=== PATIENT | male | born 1955 | race Caucasian/White ===

== ENCOUNTER → 2016-08-24 | Outpatient (CLI) | payer OTHER | LOC: FIMAGING 15:15 | PROVIDERS: ATTEND Internal Medicine | DX: J98.4 Other disorders of lung (principal) ==

== ENCOUNTER 2017-09-08 17:11 | Emergency (ER) | payer OTHER ==
[2017-09-08] MEDS ORDERED: NS 1,000 ML IV ONE (17:27)
[2017-09-08] MEDS ORDERED: ONDANSETRON 4 MG/2 ML VIAL IVP ONE (17:27)
--- NOTE | 2017-09-08 17:27 | EDPHY ---
General - History Smoking Status: Never smoked Time Seen by Provider: 09/08/17 17:19 Narrative: CHIEF COMPLAINT: Abdominal pain HISTORY OF PRESENT ILLNESS: Patient complains of pain in the left lower quadrant. This started last night after washing his vehicle. It is located only in the left lower quadrant. It has been constant duration. Rated as severe, 10/10 while moving. He says that he can"feel it when I step."Minimal improvement rest. Does not radiate. No fever chills. No constipation or diarrhea although he did take magnesium citrate last night. He has had no change in the caliber of his stools. No weight loss or night sweats. No trauma or injury. No previous abdominal diagnoses or surgeries. Colonoscopy at age 50 was reportedly normal. No repeat colonoscopy yet. No history of colon cancer in the family. No other associated complaints or modifying factors. REVIEW OF SYSTEMS: Ten systems reviewed and are negative unless otherwise noted in the HPI PCP: Dr. Delgadillo SPECIALISTS: None currently PAST MEDICAL HISTORY: Hypertension, hypothyroid, osteoarthritis, orthopedic injuries PAST SURGICAL HISTORY: Multiple lumbar surgical interventions, bilateral knee TKA. No abdominal surgeries. Colonoscopy at age 50, 1 year overdue. No reported abnormalities SOCIAL HISTORY: Nonsmoker. Lives independently with his spouse. Retired inspectors and regulatory officers FAMILY HISTORY: Noncontributory EXAMINATION General Appearance: Alert, no distress Head: normocephalic, atraumatic Eyes: Pupils equal and round, no conjunctival pallor or injection ENT, Mouth: Mucous membranes moist Neck: Normal inspection, supple, non-tender Respiratory: Lungs are clear to auscultation Cardiovascular: Regular rate and rhythm. No murmur Gastrointestinal: Abdomen is soft and nondistended. There is left lower quadrant tenderness and guarding in the left lower quadrant. No tympany rigidity. No CVA tenderness. Back: non-tender, no bony abnormalities Neurological: A&O, nonfocal, normal gait Skin: Warm and dry, no rash. No petechiae or purpura Extremities: Nontender, no pedal edema Psychiatric: Mood and affect normal DIFFERENTIAL DIAGNOSES: Including but not limited to diverticulitis, colitis, appendicitis, enteritis, volvulus MDM: 5:25 p.m. Left lower quadrant abdominal pain with history exam that is suggestive of diverticulitis or colitis. He has no upper abdominal pain. He is guarding in the left lower quadrant, thus I did order CT scan of the abdomen pelvis. Vital signs are within normal limits and he is in no acute distress. IV is currently being placed and we will obtain an i-STAT to expedite his CT scan. I will discuss the case with Dr. Grajeda 6:00 p.m. CBC reveals mild leukocytosis. Chemistry is unremarkable as are his liver function test. CT scan is pending. 6:20 p.m. Notified by radiologist Dr. Pompa. CT scan does reveal uncomplicated sigmoid diverticulitis. We discussed the remainder of the scan including a well visualized normal appendix. 6:40 p.m. Patient has been re-evaluated. We discussed the CT findings and laboratory studies. He still has [id number] pain after being moved her CT scan but thinks that he would be comfortable going home for outpatient therapy. We discussed discharge home with Percocet pain medication, nausea medication, Augmentin and Senna or Colace for constipation prevention. Dr. Beltrán will assess the patient. 7:05 p.m. Patient has been evaluated by Dr. Beltrán. He agrees with the plan of discharge home with Augmentin antibiotics, pain medication and constipation prophylaxis. The patient's spouse are both comfortable this plan. He has received p.o. Augmentin here discharged home with remaining prescription. He will contact his primary care physician on Saturday to be re-evaluated this week. Strict ED precautions for any pain intolerance, fever, nausea, vomiting or constipation. He is comfortable this plan and discharged in stable condition SUPERVISION: Patient was evaluated and examined in conjunction with my secondary supervising physician as documented. We have both examined the patient. (Brady Garcia) Medical Decision Making: PHYSICIAN DOCUMENTATION: The patient was evaluated and managed by the Physician Food And Beverage Service Manager and myself. I have reviewed the chart and agree with the findings and plan of care as documented. In addition, I examined the patient myself at 1900. History confirmed as left lower quadrant abdominal pain, nontraumatic. Physical findings as follows: Patient does have left-sided abdominal tenderness. CT reviewed, inpatient treatment discussed versus home with oral antibiotics. Warned that he is slightly higher risk of outpatient failure with his borderline diabetes which is diet controlled. He wants to try which I think is reasonable. Does not have a micro perforation or abscess on CT, afebrile, tolerating oral fluids, clinically looks well. I am the secondary supervising physician. (Edgar Beltrán) - Diagnostics Imaging Results: Imaging Impressions Abdomen CT 09/08/17 17:27 Impression: 1. Diverticulitis of the descending and sigmoid colon. 2. No free fluid, abscess or perforation. 3. At least two-vessel calcified coronary plaque. Findings discussed with Emergency Department physician cancer genetics assistant, Brady Garcia PA-C on September 08, 2017 at 1822 hours. - Objective Vital Signs: Initial Vital Signs Temperature (C) 98.1 F 09/08/17 17:15 Heart Rate 92 09/08/17 17:15 Respiratory Rate 16 09/08/17 17:15 Blood Pressure 156/97 H 09/08/17 17:15 O2 Sat (%) 94 09/08/17 17:15 O2 Delivery Mode Room Air Allergies/Adverse Reactions: tramadol HCl [From Ultram] Allergy (Verified 09/08/17 17:14) Home Medications: Medication Instructions Recorded Aspirin [Aspir 81] 12/03/11 Synthroid 06/25/14 Amoxicillin/Clavulanate Pot 875 mg PO TID #41 tab 09/08/17 [Augmentin 875 MG TAB (*)] Fish Oil 1,000 mg Softgel 09/08/17 Ibuprofen 09/08/17 Ondansetron Odt [Zofran Odt 4 mg 4 mg PO Q6 PRN #12 tab 09/08/17 (*)] Tylenol 09/08/17 oxyCODONE HCL/ACETAMINOPHEN 1 each PO Q4-6PRN PRN #15 tablet 09/08/17 [Percocet 5-325 mg Tablet] Laboratory Results: Laboratory Results 09/08/17 17:34 09/08/17 17:34 09/08/17 09/08/17 09/08/17 17:39 17:34 17:34 WBC 10.83 10^3/uL H 10^3/uL (3.80-9.50) RBC 4.91 10^6/uL 10^6/uL (4.40-6.38) Hgb 14.7 g/dL g/dL (13.7-17.5) POC Hgb 15.0 gm/dL gm/dL (13.7-17.5) Hct 43.1 % % (40.0-51.0) POC Hct 44 % % (40-51) MCV 87.8 fL fL (81.5-99.8) MCH 29.9 pg pg (27.9-34.1) MCHC 34.1 g/dL g/dL (32.4-36.7) RDW 13.4 % % (11.5-15.2) Plt Count 225 10^3/uL 10^3/uL (150-400) MPV 8.5 fL L fL (8.7-11.7) Neut % (Auto) 69.8 % % (39.3-74.2) Lymph % (Auto) 18.0 % % (15.0-45.0) [place] % (Auto) 10.6 % % (4.5-13.0) Eos % (Auto) 1.1 % % (0.6-7.6) Baso % (Auto) 0.3 % % (0.3-1.7) Nucleat RBC Rel Count 0.0 % % (0.0-0.2) Absolute Neuts (auto) 7.56 10^3/uL H 10^3/uL (1.70-6.50) Absolute Lymphs (auto) 1.95 10^3/uL 10^3/uL (1.00-3.00) Absolute Monos (auto) 1.15 10^3/uL H 10^3/uL (0.30-0.80) Absolute Eos (auto) 0.12 10^3/uL 10^3/uL (0.03-0.40) Absolute Basos (auto) 0.03 10^3/uL 10^3/uL (0.02-0.10) Absolute Nucleated RBC 0.00 10^3/uL 10^3/uL (0-0.01) Immature Gran % 0.2 % % (0.0-1.1) Immature Gran # 0.02 10^3/uL 10^3/uL (0.00-0.10) POC Sodium 140 mEq/L mEq/L (135-145) Sodium 139 mEq/L mEq/L (135-145) POC Potassium 4.0 mEq/L mEq/L (3.3-5.0) Potassium 4.3 mEq/L mEq/L (3.3-5.0) POC Chloride 106 mEq/L mEq/L (97-110) Chloride 107 mEq/L mEq/L (97-110) Carbon Dioxide 20 mEq/l L mEq/l (22-31) Anion Gap 12 mEq/L mEq/L (8-16) POC BUN 22 mg/dL mg/dL (7-23) BUN 21 mg/dL mg/dL (7-23) Creatinine 0.9 mg/dL mg/dL (0.7-1.3) POC Creatinine 1.0 mg/dL mg/dL (0.7-1.3) Estimated GFR > 60 Glucose 104 mg/dL H mg/dL (70-100) POC Glucose 110 mg/dL H mg/dL (70-100) Calcium 8.9 mg/dL mg/dL (8.5-10.4) Total Bilirubin 0.6 mg/dL mg/dL (0.1-1.4) Conjugated Bilirubin 0.4 mg/dL mg/dL (0.0-0.5) Unconjugated Bilirubin 0.2 mg/dL mg/dL (0.0-1.1) AST 29 IU/L IU/L (17-59) ALT 41 IU/L IU/L (21-72) Alkaline Phosphatase 81 IU/L IU/L (38-126) Total Protein 7.1 g/dL g/dL (6.3-8.2) Albumin 4.1 g/dL g/dL (3.5-5.0) Lipase 167 IU/L IU/L (23-300) Medications Given: Discontinued Medications Amoxicillin/Clavulanate Potassium (Augmentin 875mg) 875 mg PO EDNOW ONE PRN Reason: Protocol Stop: 09/08/17 19:05 Last Admin: 09/08/17 19:17 Dose: 875 mg Sodium Chloride (Ns) 1,000 mls @ 0 mls/hr IV EDNOW ONE; Wide Open PRN Reason: Protocol Stop: 09/08/17 17:28 Last Admin: 09/08/17 17:42 Dose: 1,000 mls Morphine Sulfate (Morphine) 6 mg IVP EDNOW ONE Stop: 09/08/17 17:28 Last Admin: 09/08/17 17:43 Dose: 6 mg Morphine Sulfate (Morphine) 4 mg IVP EDNOW ONE Stop: 09/08/17 18:40 Last Admin: 05/27/18 18:42 Dose: Not Given Ondansetron HCl (Zofran) 4 mg IVP EDNOW ONE Stop: 09/08/17 17:28 Last Admin: 09/08/17 17:43 Dose: 4 mg Oxycodone/Acetaminophen (Percocet 5/325mg Prepack#4) 1 btl TAKEHOME EDNOW ONE Stop: 09/08/17 19:05 Last Admin: 09/08/17 19:17 Dose: 1 btl Point of Care Test Results: 09/08/17 17:39 POC Sodium 140 POC Potassium 4.0 POC Chloride 106 POC BUN 22 POC Creatinine 1.0 POC Glucose 110 H Departure - Departure Disposition: Home, Routine, Self-Care Clinical Impression: Sigmoid diverticulitis, Acute abdominal pain Condition: Good Instructions: Oxycodone/Acetaminophen (By mouth), Amoxicillin/Clavulanate Potassium (By mouth), Diverticulitis (ED) Additional Instructions: 1. Antibiotic therapy as prescribed to completion 2. Pain medication as prescribed as needed 3. Nausea medication as prescribed as needed 4. Contact your primary care physician on Saturday to be re-evaluated this week 5. Return to emergency department for any worsening pain, constipation, diarrhea , bloody stools, the persistent fever 6. Clear liquid diet for 24 hr and advance slowly as tolerated with increase fluid intake Referrals: Hal Delgadillo MD [Primary Care Provider] - As per Instructions Prescriptions: Amoxicillin/Clavulanate Pot [Augmentin 875 MG TAB (*)] 875 mg PO TID #41 tab Ondansetron Odt [Zofran Odt 4 mg (*)] 4 mg PO Q6 PRN #12 tab PRN Reason: Nausea/Vomiting, Use 1st oxyCODONE HCL/ACETAMINOPHEN [Percocet 5-325 mg Tablet] 1 each PO Q4-6PRN PRN # 15 tablet PRN Reason: Pain, Breakthrough
[2017-09-08 17:44] LABS: PLATELET COUNT 225 10^3/uL (150-400)
[2017-09-08] MEDS ORDERED: IOPAMIDOL (ISOVUE-300) 100 ML BTL ONE (17:51)
[2017-09-08] MEDS ORDERED: OXYCODONE/APAP 5/325MG PREPACK#4 BTL TAKEHOME ONE (19:04)
[2017-09-08] MEDS ORDERED: AMOXICILLIN/CLAVULANATE POT 875/125 MG TAB PO ONE (19:04)
[2017-09-08 19:24] VITALS: BP 142/78
== END 2017-09-08 19:25 | disposition home or self-care (01) ==
DX: K57.32 Diverticulitis of large intestine without perforation or abscess without bleeding (principal); I10 Essential (primary) hypertension; E86.9 Volume depletion, unspecified
CPT/HCPCS: 82947-QW; 96374; J2270; J2405; Q9967

== ENCOUNTER → 2018-05-23 | Outpatient (CLI) | payer OTHER ==
[~2018-05-23] MED LIST: IOHEXOL 300 mgI/ML (OMNIPAQUE) 150 ML BTL IV ONE
== END ==
LOC: FIMAGING 07:42
PROVIDERS: ATTEND Internal Medicine
DX: K57.10 Diverticulosis of small intestine without perforation or abscess without bleeding (principal); N20.0 Calculus of kidney
CPT/HCPCS: 74177; Q9967; 82565-PO

== ENCOUNTER 2018-06-17 11:11 | Inpatient (IN) | payer OTHER ==
[2018-06-17] MEDS ORDERED: LR 1,000 ML IV ONE (11:27)
--- NOTE | 2018-06-17 11:59 | PDHPUP ---
History & Physical Update H&P update statement: This history and physical update is based on an assessment of the patient which was completed after admission or registration (within 24 hours), but prior to the surgery/procedure. H&P update: H&P reviewed & patient examined, no change in patient's condition since H&P completed
[2018-06-17] MEDS ORDERED: MIDAZOLAM 2 MG/2 ML VIAL ONE (12:00)
[2018-06-17] MEDS ORDERED: MIDAZOLAM 2 MG/2 ML VIAL IVP ONE (12:03)
--- NOTE | 2018-06-17 12:04 | PDANEPAE ---
ANE History of Present Illness here for colectomy ANE Past Medical History - Cardiovascular History Hx Hypertension: No Hx Arrhythmias: No Hx Chest Pain: No Hx Coronary Artery / Peripheral Vascular Disease: No Hx CHF / Valvular Disease: No Hx Palpitations: No - Pulmonary History Hx COPD: No Hx Asthma/Reactive Airway Disease: Yes Hx Recent Upper Respiratory Infection: No Hx Oxygen in Use at Home: No Hx Sleep Apnea: No Sleep Apnea Screening Result - Last Documented: Positive Pulmonary History Comment: smoke and dust triggers asthma - Neurologic History Hx Cerebrovascular Accident: No Hx Seizures: No Hx Dementia: No - Endocrine History Hx Diabetes: Yes Obesity: mild Endocrine History Comment: type 2 controlled with diet - Renal History Hx Renal Disorders: No - Liver History Hx Hepatic Disorders: No - Neurological & Psychiatric Hx Hx Neurological and Psychiatric Disorders: Yes Neurological / Psychiatric History Comment: N/T R/T knees and back - Cancer History Hx Cancer: No - GI History Hx Gastrointestinal Disorders: Yes Gastrointestinal History Comment: diverticulitis - Other Health History Other Health History: dysphagia R/T NECK FUSION - Chronic Pain History Chronic Pain: Yes (LOWER BACK,NECK si JOINT) - Surgical History Prior Surgeries: LTKA 2014. RTKA 2015. LUMBAR FUSION. CERVICAL FUSION. L SI joint fused ANE Review of Systems Review of systems is: negative Review of Systems: - Exercise capacity Exercise capacity: >=4 METS METS (RN): 4 METS ANE Patient History - Allergies Allergies/Adverse Reactions: tramadol HCl [From Ultra] Allergy (Verified 06/10/18 17:13) - Home Medications Home medications: home medication list seen and reviewed Home Medications: Levothyroxine [Synthroid 100 mcg (*)] 100 mcg PO DAILY06 06/25/14 [Last Taken 05:00] Acetaminophen [Tylenol 325mg (*)] 325 mg PO Q6HRS PRN 09/08/17 [Last Taken 06/16] Ibuprofen [Motrin (*)] 200 mg PO TID PRN 09/08/17 [Last Taken 1 Week Ago ~] [place]-3 Fatty Acids [Fish Oil 1000 mg (*)] 1,000 mg PO DAILY 09/08/17 [Last Taken 1 Week Ago ~06/10/18] Albuterol [Proventil Inhaler HFA (*)] 1 - 2 puffs IH Q4H PRN 06/06/18 [Last Taken 06/17/18] Aspirin [Aspirin 81mg (*)] 81 mg PO DAILY 06/06/18 [Last Taken 1 Week Ago ~06/10] Liothyronine Sodium [Cytomel 5 mcg (*)] 5 mcg PO DAILY 06/06/18 [Last Taken 08/31 05:00] Montelukast Sodium [Singulair 10 mg (*)] 10 mg PO DAILY PRN 06/06/18 [Last Taken 3 Days Ago ~06/14/18] - NPO status NPO Status: no food or drink >8 hours NPO Since - Liquids (Date): 06/16/18 NPO Since - Liquids (Time): 22:00 NPO Since - Solids (Date): 06/15/18 - Smoking Hx Smoking Status: Never smoked - Family Anes Hx Family Hx Anesthesia Complications: none ANE Labs/Vital Signs - Vital Signs Vital Signs: reviewed preoperatively; see RN documention for details Blood Pressure: 133/94 Heart Rate: 67 Respiratory Rate: 15 O2 Sat (%): 95 Height: 187.96 cm Weight: 104.326 kg ANE Physical Exam - Airway Neck exam: FROM, spinal fusion Mallampati Score: Class 1 - Pulmonary Pulmonary: no respiratory distress - Cardiovascular Cardiovascular: regular rate and rhythym - ASA Status ASA Status: II ANE Anesthesia Plan Anesthesia Plan: general endotracheal anesthesia
[2018-06-17] MEDS ORDERED: BUPIVACAINE/EPI 0.5% 30 ML SDV ONE (12:08)
[2018-06-17] MEDS ORDERED: BUPIVACAINE 0.5% 30 ML SDV ONE (12:08)
[2018-06-17] MEDS ORDERED: PROPOFOL/EMULSION 500 MG/50 ML BOTTLE IV ONE ×2 (12:09→13:34)
[2018-06-17] MEDS ORDERED: fentaNYL 100 MCG/2 ML INJ ONE ×4 (12:09→15:59)
[2018-06-17] MEDS ORDERED: ROCURONIUM 50 MG/5 ML VIAL ONE ×2 (12:10→12:13)
[2018-06-17] MEDS ORDERED: PHENYLEPHRINE HCL 100 MCG/ML SYR ONE (12:16)
[2018-06-17] MEDS ORDERED: DEXAMETHASONE 4 MG/ML VIAL ONE (12:41)
[2018-06-17] MEDS ORDERED: ONDANSETRON 4 MG/2 ML VIAL ONE (12:41)
[2018-06-17] MEDS ORDERED: ONDANSETRON 4 MG/2 ML VIAL IVP PRN ×2 (13:51→16:04)
[2018-06-17] MEDS ORDERED: fentaNYL 100 MCG/2 ML INJ IVP PRN (13:51)
[2018-06-17] MEDS ORDERED: NALOXONE HCL 0.4 MG/ML INJ IVP PRN (13:51)
[2018-06-17] MEDS ORDERED: NS 500 ML IV PRN (13:51)
[2018-06-17] MEDS ORDERED: DEXAMETHASONE 4 MG/ML VIAL IVP PRN (13:51)
[2018-06-17] MEDS ORDERED: HYDROmorphONE/DILAUDID 2 MG/ML INJ IVP PRN (13:51)
[2018-06-17] MEDS ORDERED: ALBUTEROL 3 ML DEYVIAL IH PRN (13:51)
[2018-06-17] MEDS ORDERED: PROMETHAZINE HCL 25 MG/ML INJ IVP PRN (13:51)
[2018-06-17] MEDS ORDERED: INDOCYANINE GREEN 25 MG VIAL ONE (14:08)
[2018-06-17] MEDS ORDERED: SUGAMMADEX SODIUM 200 MG/2 ML VIAL IVP ONE (15:24)
--- NOTE | 2018-06-17 15:59 | POSTANESTH ---
Post Anesthetic Evaluation Cardiovascular Status: Normal, Stable Respiratory Status: Normal, Stable Level of Consciousness/Mental Status: Can Participate in Eval Pain Control: Adequate, Prn Tx Ordered Nausea/Vomiting Control: Adequate, Prn Tx Ordered Complications Possibly Related to Anesthesia: None Noted
[2018-06-17] MEDS ORDERED: ACETAMINOPHEN 325 MG TAB PO PRN (16:03)
[2018-06-17] MEDS ORDERED: MONTELUKAST SODIUM 10 MG TAB PO PRN (16:03)
[2018-06-17] MEDS ORDERED: ALBUTEROL 60 PUFFS/8 GM MDI IH PRN (16:03)
--- NOTE | 2018-06-17 16:03 | POSTOPPROG ---
Post Op Note Date of Operation: 06/17/18 Surgeon: Josue Barros Daycare Director: MARISELA Gardiner Anesthesiologist: Elieser Anesthesia: GET(General Endotracheal) Pre-op Diagnosis: Diverticulitis Post-op Diagnosis: diverticulitis, umbilical hernia Procedure: Robotic assisted sigmoid colectomy, primary umbilical hernia repair Findings: Leak test neg x2. 1.5cm umbilical hernia repair primarily Inf/Abcess present in the surg proc area at time of surgery?: No EBL: Minimal MBP: Yes Clean Closure Performed: Yes Specimen(s): sigmoid colon anastomotic rings
--- NOTE | 2018-06-17 17:07 | PDMN ---
Medical Necessity Medical necessity: Pt meets inpt criteria per MD order and [facility] [id number], Bowel Surgery: Colectomy, Partial, with or without Ostomy, by Laparoscopy, 3 days, IP only list. 62 y/o w/diverticulitis and umbilical hernia admitted for robotic assisted sigmoid colectomy and primary umbilical hernia repair and post-op care.
[2018-06-17] MEDS: D5W 1/2 NS W/ 20 KCl/L 1,000 ML IV SCH (17:21)
[2018-06-17] MEDS: HYDROmorphONE/DILAUDID 1 MG/ML INJ IVP PRN (17:31)
--- NOTE | 2018-06-17 17:50 | GOP ---
[f rep st] OPERATIVE REPORT DATE OF OPERATION: 06/17/2018 SURGEON: Josue Barros MD SANDBLAST CARVER: Nidhi Ovalle CFA. ANESTHESIA: General endotracheal. ANESTHESIOLOGIST: Dr. Colt Mon. PREOPERATIVE DIAGNOSIS: Recurrent diverticulitis. POSTOPERATIVE DIAGNOSIS: Recurrent diverticulitis with umbilical hernia. PROCEDURE PERFORMED: 1. Robotic assisted sigmoid colectomy with primary end-to-end anastomosis. 2. Primary umbilical hernia repair. FINDINGS: Successful resection of approximately 20 cm of sigmoid colon. End-to-end stapled 29 EEA a nastomosis performed with negative leak test. Primary umbilical hernia repair performed with Vicryl. SPECIMENS: Sigmoid colon with anastomotic rings. ESTIMATED BLOOD LOSS: 10 cc. DESCRIPTION OF PROCEDURE: The patient was greeted in the preoperative suite, and once again, risks, benefits, and alternatives were discussed. Consent was signed. He was then brought back to the oper ative suite, placed on the OR table in supine position. After all anesthesia machines, including SCD s were on and functioning, a World [employer] time-out was performed. After successful hoang ction of general anesthesia, the patient's abdomen was prepped and draped in typical sterile fashion. I commenced the procedure by making an off midline just adjacent to the umbilicus incision through wh ich the Veress needle was passed. I achieved pneumoperitoneum to 15 mmHg, which was well tolerated b y the patient. Through this defect, I then inserted an 8 mm trocar through the umbilical defect. On ce successfully in the abdomen, I achieved pneumoperitoneum to 15 mmHg. I placed multiple additional trocars. There was a 12 mm trocar placed in the right lower quadrant, 2 additional 8 mm trocars wer e placed in the left upper quadrant, and a 5 mm assistant public defender port was placed in the right upper quadrant . The patient was then placed in gentle Trendelenburg position and the robot was docked. Once successfully in the abdomen, the patient did have some adhesions in the pelvis were successfully lysed sharply. I turned my attention first to the medial aspect of the right mesentery. I dissecte d this through down to the level of the rectum and successfully entered the left lateral side. I the n turned my attention toward the patient's adhesions, which he had from the sigmoid colon to the late ral pelvic wall. These were successfully dissected off sharply. The descending colon was then succe ssfully mobilized all the way up to the level of the splenic flexure. After successful mobilization, I successfully identified the left ureter and protected it throughout. After this was done, I selec huang both proximal and distal resection sites. Proximal section was in the mid descending colon at an area, which was free from tics. The distal resection site was at the area of the convergence of the tenia at the proximal rectum. I first began my procedure by successfully taking the mesentery for these sites until the mesentery w as taken. Indocyanine green was successfully instilled via the IV, which showed good perfusion of jasvir th the proximal and distal resection sites. I then successfully resected the distal portion using 2 fires of the 45 mm green staple load. The bowel was then brought out through the staple port incisio n in the right lower quadrant. The proximal site was identified and successfully amputated. The spe cimen was passed off. The distal descending colon was then sewn with a pursestring and the anvil was placed within it. It was then allowed to lay back within the patient's abdominal cavity. The wound protector was then removed. Gloves, gown, and a clean closure were then brought in. The fascia was reapproximated. Pneumoperito neum was then resufflated to 15 mmHg. The firing portion of the stapler was then placed to the patie nt's rectum all the way up to the rectal stump. Firing pin was then successfully attached to the anv il and fired. Two anastomotic rings were identified on back table interrogation. Patient's pelvis w as then filled with saline and a leak test was then performed, which was negative x2. The remainder of the patient's abdomen was interrogated. Hemostasis was noted to be good. The colon was not kinke d and laid with a good orientation with no tension. The pelvis was irrigated and washed out. No other significant findings were noted. Pneumoperitoneum was evacuated. The skin for the port sites was then closed with 4-0 Monocryl. Prior to doing this, the patient's umbilical hernia was reapproximated with an 0 Vicryl stitch noting excellent fascial r eapproximation. The patient was then extubated in the operative suite and taken to the PACU in satis factory condition. DRAINS: None. COUNTS: All counts were reported as correct x2. /[id number]/MODL
[2018-06-17] MEDS: ACETAMINOPHEN 325 MG TAB PO PRN (21:33)
[2018-06-18] MEDS: D5W 1/2 NS W/ 20 KCl/L 1,000 ML IV SCH ×2 (02:33→11:41)
[2018-06-18] MEDS: LEVOTHYROXINE 100 MCG TAB PO SCH (05:24)
[2018-06-18] MEDS: LIOTHYRONINE SODIUM 5 MCG TAB PO SCH (09:26)
--- NOTE | 2018-06-18 09:31 | SOAPPROG ---
SOAP Progress Note Assessment/Plan: Assessment/Plan: 62 y/o M s/p robotic assisted sigmoid colectomy and umbilical hernia repair POD #1 Continue clears. Continue romero. Ambulate as much as possible. S: Doing well overall. Denies passing flatus or BM yet. Tolerating clears. O: Alert Afebrile VSS RRR No increased WOB Abdomen: soft, attp, nondistended, absent bowel sounds. 06/18/18 09:28 Objective: Vital Signs Temp Pulse Resp BP Pulse Ox 36.8 C 79 16 100/75 95 06/18/18 07:55 06/18/18 07:55 06/18/18 07:55 06/18/18 07:55 06/18/18 07:55 06/17/18 06/18/18 06/19/18 05:59 05:59 05:59 Intake Total 3880 Output Total 2270 Balance 1610 ICD10 Worksheet Patient Problems: Problems Problem Status Onset Diverticulitis Acute - ICD10 Problem Qualifiers (1) Diverticulitis
--- NOTE | 2018-06-18 10:48 | ASMTCMCOM ---
CM Note CM Note Notes: Pt is a 62 y/o man admitted for diverticulitis. Pt will most likely d/c independent when medically stable. No therapies ordered at this time. CM available for changes. Plan: Independent Date Signed: 06/18/2018 10:47 AM Electronically Signed By:RODRIGUE Almodovar
[2018-06-18] MEDS: ACETAMINOPHEN 325 MG TAB PO PRN (11:38)
[2018-06-18] MEDS ORDERED: ONDANSETRON 4 MG/2 ML VIAL IVP PRN (21:57)
[2018-06-18] MEDS ORDERED: PROMETHAZINE HCL 25 MG/ML INJ IVP PRN (21:58)
[2018-06-19] MEDS: LEVOTHYROXINE 100 MCG TAB PO SCH (06:34)
[2018-06-19] MEDS: LIOTHYRONINE SODIUM 5 MCG TAB PO SCH (08:12)
[2018-06-19] MEDS: ACETAMINOPHEN 325 MG TAB PO PRN (10:56)
--- NOTE | 2018-06-19 12:52 | SOAPPROG ---
SOAP Progress Note Assessment/Plan: Assessment: 62yo M POD#2 sigmoid colectomy for diverticulitis - VSS, HDs - Pain is controlled - nausea is better. Tolerating clears, will keep at clears today - abdomen is soft, incisions look good. Not much for bowel sounds - Ambulate. Keep romero until tomorrow. Control nausea. Keep CLD Plan: 06/19/18 12:49 Subjective: nausea, otherwise feels well Objective: Vital Signs Temp Pulse Resp BP Pulse Ox 37.0 C 81 14 158/97 H 93 06/19/18 11:32 06/19/18 11:32 06/19/18 11:32 06/19/18 11:32 06/19/18 11:32 06/18/18 06/19/18 06/20/18 05:59 05:59 05:59 Intake Total 3880 1290 Output Total 8810 5664 1550 Balance 6892 -7595 -1550 ICD10 Worksheet Patient Problems: Problems Problem Status Onset Diverticulitis Acute
[2018-06-19] MEDS: CYCLOBENZAPRINE 10 MG TAB PO PRN (13:56)
[2018-06-19] MEDS: D5W 1/2 NS W/ 20 KCl/L 1,000 ML IV SCH (16:12)
[2018-06-19] MEDS: HYDROmorphONE/DILAUDID 1 MG/ML INJ IVP PRN ×3 (16:41→20:23)
[2018-06-19] MEDS: hydrALAZINE 20 MG/ML VIAL IVP PRN (17:54)
[2018-06-20] MEDS: hydrALAZINE 20 MG/ML VIAL IVP PRN ×2 (00:26→17:04)
[2018-06-20] MEDS: LEVOTHYROXINE 100 MCG TAB PO SCH (06:19)
[2018-06-20] MEDS: CYCLOBENZAPRINE 10 MG TAB PO PRN (07:13)
[2018-06-20] MEDS ORDERED: LORazepam 1 MG TAB PO PRN (08:41)
--- NOTE | 2018-06-20 08:58 | SOAPPROG ---
SOBLAIR Progress Note Assessment/Plan: Assessment: 62yo M POD#3 sigmoid colectomy for diverticulitis - HTN better, did get dose of hydralazine overnight - Still with a lot of back pain, per report didnt get anything overnight for this so we are a little behind this AM - remove romero - advance diet, PO pain meds - other than the back pain, he is doing great. Will see how he looks later today. poss home this PM if diet goes ok Plan: 06/19/18 12:49 06/20/18 08:57 Subjective: back pain Objective: Vital Signs Temp Pulse Resp BP Pulse Ox 37.1 C 95 18 130/98 H 94 06/20/18 07:31 06/20/18 07:31 06/20/18 07:31 06/20/18 07:31 06/20/18 07:31 06/19/18 06/20/18 06/21/18 05:59 05:59 05:59 Intake Total 1290 150 Output Total 5284 5687 Balance -9942 -0090 ICD10 Worksheet Patient Problems: Problems Problem Status Onset Diverticulitis Acute
[2018-06-20] MEDS: LIOTHYRONINE SODIUM 5 MCG TAB PO SCH (10:31)
[2018-06-20 18:00] VITALS: BP 148/95
--- NOTE | 2018-06-24 12:23 | PDDCSUM ---
Discharge Summary Discharge Summary: DISCHARGE SUMMARY Date of Admission June 17, 2018 Date of Discharge June 20, 2018 DISCHARGE DIAGNOSES -recurrent diverticulitis HOSPITAL COURSE The patient was admitted and taken to the operating room where he underwent robotic assisted sigmoid colectomy. He was subsequently transferred to the postanesthesia unit in the general medical floor. His diet was advanced and well tolerated on day of discharge with appropriate return of bowel function. His pain is well controlled. He was discharged home in stable condition on the afternoon of the 8th DISCHARGE MEDICATIONS Oxycodone as needed for pain DISPOSITION Home FOLLOW UP Follow up with me in the office in 10-14 days for a general post-operative visit
== END 2018-06-20 18:18 | disposition home or self-care (01) | DRG 331 ==
LOC: F1N 11:11 → F3E 16:59
PROVIDERS: ADMIT Surgery; ATTEND Surgery
PROC: 8E0W4CZ Robotic Assisted Procedure of Trunk Region, Percutaneous Endoscopic Approach (ICD-10-PCS; principal; 2018-06-17 13:00)
PROC: 0WQF4ZZ Repair Abdominal Wall, Percutaneous Endoscopic Approach (ICD-10-PCS; principal; 2018-06-17 13:00)
PROC: 0DBN4ZZ Excision of Sigmoid Colon, Percutaneous Endoscopic Approach (ICD-10-PCS; principal; 2018-06-17 13:00)
DX: K57.32 Diverticulitis of large intestine without perforation or abscess without bleeding (principal); K42.9 Umbilical hernia without obstruction or gangrene; E11.9 Type 2 diabetes mellitus without complications; E78.5 Hyperlipidemia, unspecified; Z98.1 Arthrodesis status; Z96.653 Presence of artificial knee joint, bilateral; Z87.442 Personal history of urinary calculi
CPT/HCPCS: J0360; J0696; J1100; J1170; J2250; J2370; J2405; J2550; J2704; J3010

== ENCOUNTER 2018-06-27 15:06 | Emergency (ER) | payer OTHER ==
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
[2018-06-27] MEDS ORDERED: IOPAMIDOL (ISOVUE 370) 100 ML BTL IV ONE (15:55)
[2018-06-27 15:58] LABS: PLATELET COUNT 380 10^3/uL (150-400)
[2018-06-27] MEDS ORDERED: HYDROmorphONE/DILAUDID 2 MG/ML INJ IVP ONE (16:11)
[2018-06-27] MEDS ORDERED: KETOROLAC 30 MG/1 ML SDV IVP ONE (16:11)
[2018-06-27] MEDS ORDERED: DEXAMETHASONE 10 MG/ML VIAL IVP ONE (17:27)
[2018-06-27] MEDS ORDERED: OXYCODONE/APAP 5/325MG PREPACK#4 BTL TAKEHOME ONE (17:27)
[2018-06-27 17:43] VITALS: BP 129/97
== END 2018-06-27 17:43 | disposition home or self-care (01) ==
DX: J90 Pleural effusion, not elsewhere classified (principal); E03.9 Hypothyroidism, unspecified; Z98.890 Other specified postprocedural states
CPT/HCPCS: 71275; 96374; 96375; 99285; J1100; J1170; J1885; Q9967; 82435-PO; 82565-PO; 82947-PO; 84132-PO; 84295-PO; 84484-ER; 84520-PO; 85014-ER